=== PATIENT | male | born 1970 | race Caucasian/White ===

== ENCOUNTER 2019-12-05 09:47 | Inpatient (IN) ==
[2019-12-05] MEDS ORDERED: LACTATED RINGERS 1,000 ML IV ONE (09:57)
[2019-12-05] MEDS ORDERED: HYDROmorphone 2 MG/1 ML VIAL IV STA ×2 (10:12→10:43)
[2019-12-05] MEDS ORDERED: ONDANSETRON 4 MG/2 ML VIAL IV PRN ×2 (10:12→14:46)
[2019-12-05 10:20] LABS: Basophils # 0.1 10*3/uL (0.0-0.2); Basophils % 0.5 % (0.0-0.8); Eosinophils % 0.1 % (0.00-10.9); Hemoglobin 15.1 GM/DL (14.0-18.0); Immature Granulocytes % 0.5 %; Immature Granulocytes Absolute 0.07 #; Lymphocytes # 1.8 10*3/uL (1.4-4.0); Mean Corpuscular HGB Conc 32.8 GM/DL (32-36); Mean Corpuscular Volume 89.8 FL (87-102); Mean Platelet Volume 12.4 FL (9.6-12.0); Monocytes % 6.2 % (1.7-12.7); Neutrophils % 80.7 % (38.7-73.9); Platelet Count 219 T/CUMM (130-400); Red Blood Count 5.12 MC/CUMM (3.8-5.5); White Blood Count 15.1 T/CUMM (4-12)
[2019-12-05 10:41] LABS: Albumin 3.3 G/DL (3.4-5.0); Bilirubin,Total 2.1 MG/DL (0.2-1.0); Calcium 9.4 MG/DL (8.5-10.1); Osmolality,Calculated 271.2 MOS/KG (273-304); Total Protein 8.1 G/DL (6.4-8.3)
[2019-12-05] MEDS ORDERED: PIPERACILLIN/TAZOBACTAM 3,375 MG in SODIUM CHLORIDE 0.9% 100 ML IV STA ×2 (10:42→10:48)
[2019-12-05] MEDS ORDERED: PIPERACILLIN/TAZOBACTAM 3,375 MG VIAL IV ONE (10:43)
[2019-12-05] MEDS ORDERED: SODIUM CHLORIDE 0.9% 100 ML IV ONE ×2 (10:46→14:12)
[2019-12-05] MEDS ORDERED: diphenhydrAMINE 50 MG/1 ML VIAL ONE (10:59)
[2019-12-05] MEDS ORDERED: diphenhydrAMINE 50 MG/1 ML VIAL IV STA (10:59)
[2019-12-05] MEDS ORDERED: LACTATED RINGERS 1,000 ML IV SCH (12:00)
[2019-12-05] MEDS ORDERED: ALBUMIN 5% 12.5 GM/250 ML VIAL IV ONE ×2 (12:16→14:12)
[2019-12-05] MEDS ORDERED: propofoL 200 MG/20 ML VIAL IV ONE (14:10)
[2019-12-05] MEDS ORDERED: PHENYLEPHRINE 1 MG/10 ML SYRINGE IV ONE (14:10)
[2019-12-05] MEDS ORDERED: fentaNYL 100 MCG/2 ML VIAL ONE (14:10)
[2019-12-05] MEDS ORDERED: DEXAMETHASONE 4 MG/1 ML VIAL ONE ×2 (14:10→14:15)
[2019-12-05] MEDS ORDERED: ONDANSETRON 4 MG/2 ML VIAL ONE ×2 (14:10→14:38)
[2019-12-05] MEDS ORDERED: MIDAZOLAM 2 MG/2 ML VIAL ONE (14:10)
[2019-12-05] MEDS ORDERED: LIDOCAINE 2% 5 ML VIAL ONE (14:10)
[2019-12-05] MEDS ORDERED: ROCURONIUM 100 MG/10 ML VIAL IV ONE (14:11)
[2019-12-05] MEDS ORDERED: SUCCINYLCHOLINE 200 MG/10 ML VIAL ONE (14:11)
[2019-12-05] MEDS ORDERED: SEVOFLURANE 1 UNIT/15 MINUTE INH ONE (14:12)
[2019-12-05] MEDS ORDERED: ACETAMINOPHEN 1,000 MG/100 ML VIAL IV ONE (14:12)
[2019-12-05] MEDS ORDERED: LACTATED RINGERS 2,000 ML IV ONE (14:12)
[2019-12-05] MEDS ORDERED: SODIUM CHLORIDE 0.9% 1,000 ML IV ONE (14:12)
[2019-12-05] MEDS ORDERED: NEOSTIGMINE 10 MG/10 ML VIAL ONE (14:12)
[2019-12-05] MEDS ORDERED: GLYCOPYRROLATE 0.4 MG/2 ML VIAL ONE (14:12)
[2019-12-05] MEDS ORDERED: ROPIVACAINE 0.5% 30 ML VIAL ONE (14:15)
[2019-12-05] MEDS ORDERED: HYDROmorphone 2 MG/1 ML VIAL ONE (14:38)
[2019-12-05] MEDS: HYDROmorphone 2 MG/1 ML VIAL IV PRN ×4 (14:40→15:04)
[2019-12-05] MEDS: DEXTROSE 5% LACTATED RINGERS 1,000 ML IV SCH (15:33)
[2019-12-05] MEDS: MORPHINE 4 MG/1 ML VIAL IV PRN ×2 (15:45→21:07)
[2019-12-05 16:07] LABS: Apearance,Urine CLOUDY (Clear); Bilirubin,Urine Negative (Negative); Blood, Urine Negative (Negative); Glucose,Urine (UA) Negative (Negative); Granular Casts,Urine 15 /LPF (0-1); Hyaline Casts,Urine 10 /LPF (0-3); Ketones,Urine 5 mg/dL (Negative); Mucus,Urine Few /LPF (Occasional); Nitrite,Urine Negative (Negative); Protein,Urine 100 MG/DL; RBC,Urine 2 /HPF (0-4); Squamous Epithelial Cell,Urine Occasional /HPF (0-10); Urine Color Amber (Yellow); Urine Specific Gravity 1.029 (1.001-1.035); WBC,Urine 27 /HPF (0-6)
[2019-12-05 16:29] LABS: Hematocrit 43.2 VOL% (42.0-52.0); Hemoglobin 14.2 GM/DL (14.0-18.0)
[2019-12-05] MEDS: cefOXitin 2,000 MG in SYRINGE 1 EACH IV SCH (17:44)
[2019-12-06] MEDS: DEXTROSE 5% LACTATED RINGERS 1,000 ML IV SCH ×2 (00:14→11:05)
[2019-12-06] MEDS: cefOXitin 2,000 MG in SYRINGE 1 EACH IV SCH ×2 (00:15→05:46)
[2019-12-06] MEDS: MORPHINE 4 MG/1 ML VIAL IV PRN ×8 (00:53→20:54)
[2019-12-06 05:39] LABS: Basophils % 0.2 % (0.0-0.8); Hematocrit 40.7 VOL% (42.0-52.0); Hemoglobin 13.1 GM/DL (14.0-18.0); Immature Granulocytes % 0.2 %; Immature Granulocytes Absolute 0.03 #; Lymphocytes # 0.3 10*3/uL (1.4-4.0); Lymphocytes % 2.7 % (21.2-54.2); Mean Corpuscular HGB Conc 32.2 GM/DL (32-36); Mean Corpuscular Volume 91.1 FL (87-102); Mean Platelet Volume 13.2 FL (9.6-12.0); Monocytes % 6.5 % (1.7-12.7); Neutrophils % 90.4 % (38.7-73.9); Platelet Count 179 T/CUMM (130-400); Red Blood Count 4.47 MC/CUMM (3.8-5.5); Red Cell Distribution Width 13.2 % (9.3-17.3); White Blood Count 12.2 T/CUMM (4-12)
[2019-12-06 06:05] LABS: Band Neutrophils 13 % (0-10); Hypochromasia Slight; Lymphocytes 5 % (20-55); Platelet Estimate Adequate; Segmented Neutrophils 75 % (50-85); Total Cells Counted 100
[2019-12-06 06:15] LABS: Albumin 2.4 G/DL (3.4-5.0); Bilirubin,Total 2.1 MG/DL (0.2-1.0); Calcium 8.5 MG/DL (8.5-10.1); Total Protein 6.3 G/DL (6.4-8.3)
[2019-12-06 06:49] LABS: Hematocrit 41.2 VOL% (42.0-52.0); Hemoglobin 13.3 GM/DL (14.0-18.0)
[2019-12-06] MEDS ORDERED: DEXTROSE 10% 250 ML BAG IV PRN (09:00)
[2019-12-06] MEDS: KETOROLAC 15 MG/1 ML VIAL IV SCH ×3 (09:00→20:54)
[2019-12-06] MEDS ORDERED: GLUCAGON 1 MG VIAL IM PRN (09:00)
[2019-12-06] MEDS: LISINOPRIL/HCTZ 20-25 MG TABLET PO SCH (09:25)
[2019-12-06] MEDS: PANTOPRAZOLE 40 MG TABLET PO SCH (09:25)
[2019-12-06] MEDS: ENOXAPARIN 40 MG/0.4 ML SYRINGE SUBCUT SCH (09:26)
[2019-12-06] MEDS: LACTATED RINGERS 1,000 ML IV SCH ×2 (10:02→20:57)
[2019-12-06] MEDS: ERTAPENEM 1,000 MG in SODIUM CHLORIDE 0.9% 100 ML IV SCH (10:56)
[2019-12-06] MEDS: INSULIN LISPRO 100 UNIT/ML SUBCUT SCH ×2 (12:09→17:54)
[2019-12-06] MEDS: ACETAMINOPHEN 325 MG TABLET PO PRN (18:44)
[2019-12-07] MEDS: ACETAMINOPHEN 325 MG TABLET PO PRN (01:42)
[2019-12-07] MEDS: LACTATED RINGERS 1,000 ML IV SCH ×2 (03:56→15:37)
[2019-12-07 05:32] LABS: Basophils % 0.1 % (0.0-0.8); Hematocrit 34.9 VOL% (42.0-52.0); Hemoglobin 11.5 GM/DL (14.0-18.0); Immature Granulocytes % 1.1 %; Immature Granulocytes Absolute 0.18 #; Lymphocytes # 0.5 10*3/uL (1.4-4.0); Lymphocytes % 3.2 % (21.2-54.2); Mean Corpuscular Volume 89.3 FL (87-102); Neutrophils % 88.6 % (38.7-73.9); Platelet Count 190 T/CUMM (130-400); Red Blood Count 3.91 MC/CUMM (3.8-5.5); Red Cell Distribution Width 13.2 % (9.3-17.3); White Blood Count 15.7 T/CUMM (4-12)
[2019-12-07 06:06] LABS: Band Neutrophils 4 % (0-10); Hypochromasia 1+; Lymphocytes 7 % (20-55); Platelet Estimate Adequate; Segmented Neutrophils 88 % (50-85); Total Cells Counted 100
[2019-12-07] MEDS: KETOROLAC 15 MG/1 ML VIAL IV SCH ×4 (06:09→21:12)
[2019-12-07 06:17] LABS: Albumin 2.2 G/DL (3.4-5.0); Bilirubin,Total 0.9 MG/DL (0.2-1.0); Calcium 8.1 MG/DL (8.5-10.1); Osmolality,Calculated 275.2 MOS/KG (273-304); Total Protein 6.5 G/DL (6.4-8.3)
[2019-12-07] MEDS: ENOXAPARIN 40 MG/0.4 ML SYRINGE SUBCUT SCH (08:46)
[2019-12-07] MEDS: LISINOPRIL/HCTZ 20-25 MG TABLET PO SCH (08:46)
[2019-12-07] MEDS: INSULIN LISPRO 100 UNIT/ML SUBCUT SCH ×3 (08:47→17:30)
[2019-12-07] MEDS: PANTOPRAZOLE 40 MG TABLET PO SCH (08:54)
[2019-12-07] MEDS: ERTAPENEM 1,000 MG in SODIUM CHLORIDE 0.9% 100 ML IV SCH (10:34)
[2019-12-07] MEDS: MORPHINE 4 MG/1 ML VIAL IV PRN ×4 (15:08→22:09)
[2019-12-07] MEDS: SODIUM HYPOCHLORITE 0.25% IRRIG 473 ML BOTTLE TOP SCH (15:35)
[2019-12-08] MEDS: MORPHINE 4 MG/1 ML VIAL IV PRN ×8 (00:22→21:34)
[2019-12-08] MEDS: KETOROLAC 15 MG/1 ML VIAL IV SCH ×4 (02:53→20:21)
[2019-12-08] MEDS: LACTATED RINGERS 1,000 ML IV SCH ×2 (06:00→20:40)
[2019-12-08] MEDS: LISINOPRIL/HCTZ 20-25 MG TABLET PO SCH (08:15)
[2019-12-08] MEDS: PANTOPRAZOLE 40 MG TABLET PO SCH (08:15)
[2019-12-08] MEDS: ENOXAPARIN 40 MG/0.4 ML SYRINGE SUBCUT SCH (08:20)
[2019-12-08] MEDS: SODIUM HYPOCHLORITE 0.25% IRRIG 473 ML BOTTLE TOP SCH (08:21)
[2019-12-08] MEDS: INSULIN LISPRO 100 UNIT/ML SUBCUT SCH ×3 (10:52→17:27)
[2019-12-08] MEDS: ERTAPENEM 1,000 MG in SODIUM CHLORIDE 0.9% 100 ML IV SCH (10:57)
[2019-12-09] MEDS: MORPHINE 4 MG/1 ML VIAL IV PRN ×4 (00:19→19:38)
[2019-12-09] MEDS: KETOROLAC 15 MG/1 ML VIAL IV SCH ×4 (02:41→21:26)
[2019-12-09 06:27] LABS: Basophils # 0.1 10*3/uL (0.0-0.2); Basophils % 0.4 % (0.0-0.8); Eosinophils # 0.1 10*3/uL (0.0-0.87); Eosinophils % 0.6 % (0.00-10.9); Hematocrit 38.1 VOL% (42.0-52.0); Immature Granulocytes % 0.8 %; Immature Granulocytes Absolute 0.11 #; Lymphocytes % 7.8 % (21.2-54.2); Mean Corpuscular HGB Conc 34.1 GM/DL (32-36); Mean Corpuscular Volume 87.6 FL (87-102); Mean Platelet Volume 11.9 FL (9.6-12.0); Monocytes % 11.5 % (1.7-12.7); Neutrophils % 78.9 % (38.7-73.9); Platelet Count 262 T/CUMM (130-400); Red Blood Count 4.35 MC/CUMM (3.8-5.5); Red Cell Distribution Width 13.2 % (9.3-17.3)
[2019-12-09] MEDS ORDERED: LIDOCAINE 1%/EPI INJ 20 ML VIAL ONE (07:09)
[2019-12-09] MEDS ORDERED: BUPIVACAINE 0.25% /EPI 10 ML VIAL ONE (07:09)
[2019-12-09] MEDS ORDERED: propofoL 200 MG/20 ML VIAL IV ONE (07:46)
[2019-12-09] MEDS ORDERED: fentaNYL 100 MCG/2 ML VIAL ONE (07:46)
[2019-12-09] MEDS ORDERED: LIDOCAINE 2% 5 ML VIAL ONE (07:46)
[2019-12-09] MEDS ORDERED: MIDAZOLAM 2 MG/2 ML VIAL ONE (07:47)
[2019-12-09] MEDS: LACTATED RINGERS 1,000 ML IV SCH ×2 (08:01→21:29)
[2019-12-09 08:13] LABS: Band Neutrophils 2 % (0-10); Eosinophils 2 % (0-10); Lymphocytes 10 % (20-55); Segmented Neutrophils 75 % (50-85); Total Cells Counted 100
[2019-12-09 08:14] LABS: Hypochromasia 1+; Microcytosis 1+
[2019-12-09 08:15] LABS: Platelet Estimate Normal
[2019-12-09] MEDS: INSULIN LISPRO 100 UNIT/ML SUBCUT SCH ×3 (08:47→18:13)
[2019-12-09] MEDS: SODIUM HYPOCHLORITE 0.25% IRRIG 473 ML BOTTLE TOP SCH (08:48)
[2019-12-09] MEDS: ENOXAPARIN 40 MG/0.4 ML SYRINGE SUBCUT SCH (10:00)
[2019-12-09] MEDS: ERTAPENEM 1,000 MG in SODIUM CHLORIDE 0.9% 100 ML IV SCH (10:00)
[2019-12-09] MEDS: LISINOPRIL/HCTZ 20-25 MG TABLET PO SCH (10:00)
[2019-12-09] MEDS: PANTOPRAZOLE 40 MG TABLET PO SCH (10:00)
[2019-12-10] MEDS: KETOROLAC 15 MG/1 ML VIAL IV SCH ×5 (02:21→15:44)
[2019-12-10] MEDS: MORPHINE 4 MG/1 ML VIAL IV PRN (02:24)
[2019-12-10 04:45] LABS: Basophils # 0.1 10*3/uL (0.0-0.2); Basophils % 0.4 % (0.0-0.8); Eosinophils # 0.2 10*3/uL (0.0-0.87); Hematocrit 35.7 VOL% (42.0-52.0); Hemoglobin 12.2 GM/DL (14.0-18.0); Immature Granulocytes % 0.9 %; Immature Granulocytes Absolute 0.14 #; Lymphocytes # 1.4 10*3/uL (1.4-4.0); Lymphocytes % 8.5 % (21.2-54.2); Mean Corpuscular HGB Conc 34.2 GM/DL (32-36); Mean Corpuscular Volume 87.1 FL (87-102); Mean Platelet Volume 11.7 FL (9.6-12.0); Neutrophils % 79.2 % (38.7-73.9); Platelet Count 284 T/CUMM (130-400); White Blood Count 15.9 T/CUMM (4-12)
[2019-12-10 05:06] LABS: Hypochromasia 1+; Microcytosis Slight; Platelet Estimate Adequate
[2019-12-10 05:11] LABS: Albumin 1.8 G/DL (3.4-5.0); Bilirubin,Total 0.8 MG/DL (0.2-1.0); Calcium 8.7 MG/DL (8.5-10.1); Osmolality,Calculated 275.1 MOS/KG (273-304); Total Protein 6.1 G/DL (6.4-8.3)
[2019-12-10] MEDS ORDERED: LEVOFLOXACIN 750 MG TABLET PO SCH (09:00)
[2019-12-10] MEDS: PANTOPRAZOLE 40 MG TABLET PO SCH (09:27)
[2019-12-10] MEDS: LISINOPRIL/HCTZ 20-25 MG TABLET PO SCH (09:27)
[2019-12-10] MEDS: ENOXAPARIN 40 MG/0.4 ML SYRINGE SUBCUT SCH (09:28)
[2019-12-10] MEDS: INSULIN LISPRO 100 UNIT/ML SUBCUT SCH ×2 (09:29→13:56)
[2019-12-10 12:17] VITALS: BP 154/91
[2019-12-10] MEDS: SODIUM HYPOCHLORITE 0.25% IRRIG 473 ML BOTTLE TOP SCH (13:55)
[2019-12-10] MEDS: LACTATED RINGERS 1,000 ML IV SCH (14:10)
== END 2019-12-10 17:20 | disposition home health service (06) | DRG 854 ==
LOC: N.ED 09:47 → SUPCPDRO 13:44 → N.ICU 14:51 → N.3E 12-06 10:36
PROVIDERS: ADMIT Surgery; ATTEND Surgery

== ENCOUNTER 2020-08-27 05:59 | Inpatient (IN) ==
[2020-08-21 11:17] LABS: Basophils # 0.1 10*3/uL (0.0-0.2); Eosinophils # 0.1 10*3/uL (0.0-0.87); Eosinophils % 0.7 % (0.00-10.9); Hematocrit 44.5 VOL% (42.0-52.0); Hemoglobin 15.7 GM/DL (14.0-18.0); Immature Granulocytes % 0.5 %; Immature Granulocytes Absolute 0.04 #; Lymphocytes # 1.6 10*3/uL (1.4-4.0); Lymphocytes % 18.2 % (21.2-54.2); Mean Corpuscular HGB Conc 35.3 GM/DL (32-36); Mean Corpuscular Volume 82.9 FL (87-102); Mean Platelet Volume 11.7 FL (9.6-12.0); Monocytes % 6.1 % (1.7-12.7); Neutrophils % 73.5 % (38.7-73.9); Platelet Count 244 T/CUMM (130-400); Red Blood Count 5.37 MC/CUMM (3.8-5.5); Red Cell Distribution Width 12.3 % (9.3-17.3); White Blood Count 8.9 T/CUMM (4-12)
[2020-08-21 11:50] LABS: Calcium 9.6 MG/DL (8.5-10.1); Osmolality,Calculated 276.7 MOS/KG (273-304)
[2020-08-27] MEDS ORDERED: ROCURONIUM 50 MG/5 ML VIAL IV ONE (06:48)
[2020-08-27] MEDS ORDERED: fentaNYL 100 MCG/2 ML VIAL ONE ×3 (06:48→10:26)
[2020-08-27] MEDS ORDERED: LIDOCAINE 2% 5 ML VIAL ONE (06:48)
[2020-08-27] MEDS ORDERED: MIDAZOLAM 2 MG/2 ML VIAL ONE ×2 (06:48→06:58)
[2020-08-27] MEDS ORDERED: propofoL 200 MG/20 ML VIAL IV ONE (06:48)
[2020-08-27] MEDS ORDERED: DEXAMETHASONE 4 MG/1 ML VIAL ONE ×2 (06:58→08:00)
[2020-08-27] MEDS ORDERED: ROPIVACAINE 0.5% 30 ML VIAL ONE (06:58)
[2020-08-27] MEDS ORDERED: LIDOCAINE 1% 5 ML VIAL ONE (06:58)
[2020-08-27] MEDS ORDERED: LACTATED RINGERS 1,000 ML IV SCH (07:00)
[2020-08-27] MEDS ORDERED: FAMOTIDINE 20 MG/2 ML VIAL IV ONE (07:03)
[2020-08-27] MEDS ORDERED: ACETAMINOPHEN 1,000 MG/100 ML VIAL IV ONE (07:59)
[2020-08-27] MEDS ORDERED: SUCCINYLCHOLINE 200 MG/10 ML VIAL ONE (07:59)
[2020-08-27] MEDS ORDERED: KETOROLAC 30 MG/1 ML VIAL ONE (08:03)
[2020-08-27] MEDS ORDERED: ePHEDrine 50 MG/ML VIAL ONE (08:17)
[2020-08-27] MEDS ORDERED: GLYCOPYRROLATE 0.4 MG/2 ML VIAL ONE ×2 (08:38→09:55)
[2020-08-27] MEDS ORDERED: PHENYLEPHRINE 1 MG/10 ML SYRINGE IV ONE (08:39)
[2020-08-27] MEDS ORDERED: PHENYLEPHRINE 10 MG/1 ML VIAL IV ONE (09:14)
[2020-08-27] MEDS ORDERED: SODIUM CHLORIDE 0.9% 250 ML IV ONE (09:19)
[2020-08-27] MEDS ORDERED: NEOSTIGMINE 10 MG/10 ML VIAL ONE (09:55)
[2020-08-27] MEDS ORDERED: ONDANSETRON 4 MG/2 ML VIAL ONE (09:57)
[2020-08-27] MEDS ORDERED: SEVOFLURANE 1 UNIT/15 MINUTE INH ONE (10:24)
[2020-08-27] MEDS ORDERED: ONDANSETRON 4 MG/2 ML VIAL IV PRN (11:00)
[2020-08-27] MEDS ORDERED: MEPERIDINE 25 MG/1 ML VIAL IV PRN (11:00)
[2020-08-27] MEDS: HYDROmorphone 2 MG/1 ML VIAL IV PRN ×6 (11:03→22:29)
[2020-08-27 11:17] LABS: Hematocrit 42.5 VOL% (42.0-52.0)
[2020-08-27] MEDS: DEXTROSE 5% NACL 0.9% 1,000 ML IV SCH (14:50)
[2020-08-27] MEDS: cefOXitin 2,000 MG in SYRINGE 1 EACH IV SCH ×2 (17:08→22:28)
[2020-08-27 19:01] LABS: Hematocrit 42.6 VOL% (42.0-52.0); Hemoglobin 14.9 GM/DL (14.0-18.0)
[2020-08-28] MEDS: DEXTROSE 5% NACL 0.9% 1,000 ML IV SCH ×4 (01:09→21:13)
[2020-08-28] MEDS: HYDROmorphone 2 MG/1 ML VIAL IV PRN ×3 (01:10→09:02)
[2020-08-28] MEDS: cefOXitin 2,000 MG in SYRINGE 1 EACH IV SCH (04:46)
[2020-08-28] MEDS: ENOXAPARIN 40 MG/0.4 ML SYRINGE SUBCUT SCH (04:47)
[2020-08-28 06:17] LABS: Basophils % 0.3 % (0.0-0.8); Hematocrit 38.8 VOL% (42.0-52.0); Hemoglobin 13.3 GM/DL (14.0-18.0); Immature Granulocytes % 0.5 %; Immature Granulocytes Absolute 0.07 #; Lymphocytes # 1.4 10*3/uL (1.4-4.0); Lymphocytes % 9.4 % (21.2-54.2); Mean Corpuscular HGB Conc 34.3 GM/DL (32-36); Mean Corpuscular Volume 85.5 FL (87-102); Mean Platelet Volume 11.6 FL (9.6-12.0); Monocytes % 10.9 % (1.7-12.7); Neutrophils % 78.9 % (38.7-73.9); Platelet Count 206 T/CUMM (130-400); Red Blood Count 4.54 MC/CUMM (3.8-5.5); Red Cell Distribution Width 12.8 % (9.3-17.3); White Blood Count 14.9 T/CUMM (4-12)
[2020-08-28 06:40] LABS: Calcium 8.3 MG/DL (8.5-10.1); Osmolality,Calculated 278.5 MOS/KG (273-304)
[2020-08-28] MEDS: PANTOPRAZOLE 40 MG TABLET PO SCH (09:04)
[2020-08-28] MEDS: LISINOPRIL/HCTZ 20-25 MG TABLET PO SCH (09:05)
[2020-08-28] MEDS: KETOROLAC 30 MG/1 ML VIAL IV SCH ×3 (11:29→23:45)
[2020-08-28] MEDS: MORPHINE 4 MG/1 ML VIAL IV PRN ×3 (17:01→23:45)
[2020-08-29] MEDS: DEXTROSE 5% NACL 0.9% 1,000 ML IV SCH ×5 (01:50→20:40)
[2020-08-29] MEDS: MORPHINE 4 MG/1 ML VIAL IV PRN ×4 (03:29→23:59)
[2020-08-29] MEDS: ENOXAPARIN 40 MG/0.4 ML SYRINGE SUBCUT SCH (05:00)
[2020-08-29] MEDS: KETOROLAC 30 MG/1 ML VIAL IV SCH ×4 (06:05→17:00)
[2020-08-29 07:59] LABS: Basophils # 0.1 10*3/uL (0.0-0.2); Basophils % 0.4 % (0.0-0.8); Eosinophils % 0.3 % (0.00-10.9); Hematocrit 34.5 VOL% (42.0-52.0); Immature Granulocytes % 0.4 %; Immature Granulocytes Absolute 0.05 #; Lymphocytes # 1.2 10*3/uL (1.4-4.0); Lymphocytes % 9.9 % (21.2-54.2); Mean Corpuscular HGB Conc 34.8 GM/DL (32-36); Mean Corpuscular Volume 84.6 FL (87-102); Mean Platelet Volume 11.5 FL (9.6-12.0); Monocytes % 9.7 % (1.7-12.7); Neutrophils % 79.3 % (38.7-73.9); Platelet Count 178 T/CUMM (130-400); Red Blood Count 4.08 MC/CUMM (3.8-5.5); Red Cell Distribution Width 12.4 % (9.3-17.3); White Blood Count 11.9 T/CUMM (4-12)
[2020-08-29] MEDS: LISINOPRIL/HCTZ 20-25 MG TABLET PO SCH (08:11)
[2020-08-29] MEDS: PANTOPRAZOLE 40 MG TABLET PO SCH (08:11)
[2020-08-29 08:24] LABS: Osmolality,Calculated 274.8 MOS/KG (273-304)
[2020-08-29] MEDS ORDERED: cefOXitin 2,000 MG in SYRINGE 1 EACH IV ONE (09:20)
[2020-08-29] MEDS ORDERED: fentaNYL 100 MCG/2 ML VIAL ONE (10:26)
[2020-08-29] MEDS ORDERED: MIDAZOLAM 2 MG/2 ML VIAL ONE (10:26)
[2020-08-29] MEDS ORDERED: propofoL 200 MG/20 ML VIAL IV ONE ×2 (10:35→12:19)
[2020-08-29] MEDS ORDERED: ROCURONIUM 50 MG/5 ML VIAL IV ONE (10:35)
[2020-08-29] MEDS ORDERED: LIDOCAINE 2% 5 ML VIAL ONE (10:35)
[2020-08-29] MEDS ORDERED: ONDANSETRON 4 MG/2 ML VIAL ONE ×2 (10:35)
[2020-08-29] MEDS ORDERED: DEXAMETHASONE 4 MG/1 ML VIAL ONE ×2 (11:47)
[2020-08-29] MEDS ORDERED: KETOROLAC 30 MG/1 ML VIAL ONE (11:47)
[2020-08-29] MEDS ORDERED: LACTATED RINGERS 1,000 ML IV ONE (12:12)
[2020-08-29] MEDS ORDERED: GLYCOPYRROLATE 0.4 MG/2 ML VIAL ONE (12:12)
[2020-08-29] MEDS ORDERED: NEOSTIGMINE 10 MG/10 ML VIAL ONE (12:12)
[2020-08-29] MEDS ORDERED: HYDROmorphone 2 MG/1 ML VIAL ONE (12:23)
[2020-08-29] MEDS ORDERED: PHENYLEPHRINE 1 MG/10 ML SYRINGE IV ONE ×2 (12:34)
[2020-08-29 13:06] LABS: Bilirubin,Urine Negative (Negative); Blood, Urine Moderate mg/dL (Negative); Glucose,Urine (UA) Negative (Negative); Ketones,Urine Negative (Negative); Mucus,Urine Occasional /LPF (Occasional); Nitrite,Urine Negative (Negative); Protein,Urine Negative; RBC,Urine 1 /HPF (0-4); Urine Appearance CLEAR (Clear); Urine Color Yellow (Yellow); Urine Specific Gravity 1.012 (1.001-1.035); Urine Urobilinogen < 2.0 EU/DL (0.2-1.0); WBC,Urine 1 /HPF (0-6)
[2020-08-30] MEDS: DEXTROSE 5% NACL 0.9% 1,000 ML IV SCH ×4 (00:04→21:34)
[2020-08-30] MEDS: KETOROLAC 30 MG/1 ML VIAL IV SCH ×4 (01:31→17:34)
[2020-08-30 06:03] LABS: Basophils % 0.1 % (0.0-0.8); Hematocrit 35.2 VOL% (42.0-52.0); Hemoglobin 12.1 GM/DL (14.0-18.0); Immature Granulocytes % 0.4 %; Immature Granulocytes Absolute 0.06 #; Mean Corpuscular HGB Conc 34.4 GM/DL (32-36); Mean Corpuscular Volume 85.4 FL (87-102); Monocytes % 7.6 % (1.7-12.7); Neutrophils % 84.9 % (38.7-73.9); Platelet Count 229 T/CUMM (130-400); Red Blood Count 4.12 MC/CUMM (3.8-5.5); Red Cell Distribution Width 12.5 % (9.3-17.3); White Blood Count 13.5 T/CUMM (4-12)
[2020-08-30] MEDS: LISINOPRIL/HCTZ 20-25 MG TABLET PO SCH (09:01)
[2020-08-30] MEDS: PANTOPRAZOLE 40 MG TABLET PO SCH (09:01)
[2020-08-30] MEDS: MORPHINE 4 MG/1 ML VIAL IV PRN ×3 (12:44→21:35)
[2020-08-30] MEDS: ONDANSETRON 4 MG/2 ML VIAL IV PRN (21:32)
[2020-08-31] MEDS: MORPHINE 4 MG/1 ML VIAL IV PRN ×3 (00:14→22:09)
[2020-08-31] MEDS: KETOROLAC 30 MG/1 ML VIAL IV SCH ×4 (00:15→17:31)
[2020-08-31] MEDS: DEXTROSE 5% NACL 0.9% 1,000 ML IV SCH (03:48)
[2020-08-31] MEDS: LISINOPRIL/HCTZ 20-25 MG TABLET PO SCH (09:30)
[2020-08-31] MEDS: PANTOPRAZOLE 40 MG TABLET PO SCH (09:30)
[2020-08-31] MEDS: ONDANSETRON 4 MG/2 ML VIAL IV PRN ×2 (16:09→22:09)
[2020-09-01] MEDS: KETOROLAC 30 MG/1 ML VIAL IV SCH ×4 (00:46→18:44)
[2020-09-01] MEDS: MORPHINE 4 MG/1 ML VIAL IV PRN ×5 (00:47→20:03)
[2020-09-01] MEDS: LISINOPRIL/HCTZ 20-25 MG TABLET PO SCH (09:01)
[2020-09-01] MEDS: PANTOPRAZOLE 40 MG TABLET PO SCH (09:02)
[2020-09-01] MEDS: LOSARTAN 25 MG TABLET PO SCH (16:18)
[2020-09-01] MEDS: ONDANSETRON 4 MG/2 ML VIAL IV PRN (20:03)
[2020-09-02] MEDS: KETOROLAC 30 MG/1 ML VIAL IV SCH ×4 (00:24→17:55)
[2020-09-02] MEDS: MORPHINE 4 MG/1 ML VIAL IV PRN (00:25)
[2020-09-02 07:50] LABS: Basophils # 0.1 10*3/uL (0.0-0.2); Basophils % 0.4 % (0.0-0.8); Eosinophils # 0.1 10*3/uL (0.0-0.87); Eosinophils % 0.4 % (0.00-10.9); Hematocrit 35.1 VOL% (42.0-52.0); Hemoglobin 12.2 GM/DL (14.0-18.0); Immature Granulocytes % 0.6 %; Lymphocytes % 5.8 % (21.2-54.2); Mean Corpuscular HGB Conc 34.8 GM/DL (32-36); Mean Corpuscular Volume 83.2 FL (87-102); Monocytes % 10.4 % (1.7-12.7); Neutrophils % 82.4 % (38.7-73.9); Platelet Count 294 T/CUMM (130-400); Red Blood Count 4.22 MC/CUMM (3.8-5.5); Red Cell Distribution Width 12.2 % (9.3-17.3); White Blood Count 16.8 T/CUMM (4-12)
[2020-09-02] MEDS: PANTOPRAZOLE 40 MG TABLET PO SCH (08:59)
[2020-09-02] MEDS: PIPERACILLIN/TAZOBACTAM 3,375 MG in SODIUM CHLORIDE 0.9% 100 ML IV SCH ×3 (08:59→15:02)
[2020-09-02] MEDS: LISINOPRIL/HCTZ 20-25 MG TABLET PO SCH (08:59)
[2020-09-02] MEDS: LOSARTAN 25 MG TABLET PO SCH (08:59)
[2020-09-02] MEDS ORDERED: GLUCAGON 1 MG VIAL IM PRN (13:26)
[2020-09-02] MEDS ORDERED: DEXTROSE 50% 25 GM/50 ML VIAL IV PRN ×2 (13:26)
[2020-09-02 14:27] LABS: Blood, Urine Negative (Negative); Glucose,Urine (UA) Negative (Negative); Ketones,Urine Negative (Negative); Mucus,Urine Few /LPF (Occasional); Nitrite,Urine Negative (Negative); Protein,Urine Negative; RBC,Urine 1 /HPF (0-4); Urine Appearance CLEAR (Clear); Urine Color Amber (Yellow); Urine Specific Gravity 1.024 (1.001-1.035); WBC,Urine 1 /HPF (0-6)
[2020-09-02 14:28] LABS: Bilirubin,Urine Small mg/dL (Negative)
[2020-09-02] MEDS: METOPROLOL TARTRATE 25 MG TABLET PO SCH ×2 (14:49→21:06)
[2020-09-02] MEDS: INSULIN LISPRO 100 UNIT/ML SUBCUT SCH ×2 (17:02→21:06)
[2020-09-02] MEDS ORDERED: ACETAMINOPHEN 325 MG TABLET PO PRN (17:54)
[2020-09-03] MEDS: PIPERACILLIN/TAZOBACTAM 3,375 MG in SODIUM CHLORIDE 0.9% 100 ML IV SCH ×3 (00:10→16:17)
[2020-09-03] MEDS: KETOROLAC 30 MG/1 ML VIAL IV SCH ×2 (00:12→05:27)
[2020-09-03 06:20] LABS: Basophils # 0.1 10*3/uL (0.0-0.2); Basophils % 0.7 % (0.0-0.8); Eosinophils # 0.1 10*3/uL (0.0-0.87); Eosinophils % 0.7 % (0.00-10.9); Hematocrit 37.3 VOL% (42.0-52.0); Hemoglobin 13.2 GM/DL (14.0-18.0); Immature Granulocytes % 0.5 %; Immature Granulocytes Absolute 0.06 #; Lymphocytes # 0.9 10*3/uL (1.4-4.0); Lymphocytes % 6.7 % (21.2-54.2); Mean Corpuscular HGB Conc 35.4 GM/DL (32-36); Mean Corpuscular Volume 83.3 FL (87-102); Mean Platelet Volume 11.7 FL (9.6-12.0); Neutrophils % 80.4 % (38.7-73.9); Platelet Count 342 T/CUMM (130-400); Red Blood Count 4.48 MC/CUMM (3.8-5.5); Red Cell Distribution Width 12.3 % (9.3-17.3); White Blood Count 12.8 T/CUMM (4-12)
[2020-09-03 06:41] LABS: Risk Ratio 4.95; VLDL CHOLESTEROL 21.8 MG/DL
[2020-09-03 06:45] LABS: Band Neutrophils 2 % (0-10); Lymphocytes 7 % (20-55); Platelet Estimate Normal; Segmented Neutrophils 83 % (50-85); Total Cells Counted 100
[2020-09-03 06:57] LABS: Albumin 2.6 G/DL (3.4-5.0); Bilirubin,Total 2.8 MG/DL (0.2-1.0); Calcium 8.9 MG/DL (8.5-10.1); Osmolality,Calculated 264.8 MOS/KG (273-304); Total Protein 7.5 G/DL (6.4-8.3)
[2020-09-03] MEDS ORDERED: POTASSIUM CHLORIDE 20 MEQ TABLET PO ONE (07:45)
[2020-09-03] MEDS ORDERED: POTASSIUM CHLORIDE RIDER 10 MEQ in PREMIX 1 EACH IV PRN (08:52)
[2020-09-03] MEDS: LISINOPRIL/HCTZ 20-25 MG TABLET PO SCH (10:15)
[2020-09-03] MEDS: METOPROLOL TARTRATE 25 MG TABLET PO SCH ×2 (10:15→20:36)
[2020-09-03] MEDS: PANTOPRAZOLE 40 MG TABLET PO SCH (10:15)
[2020-09-03] MEDS: INSULIN LISPRO 100 UNIT/ML SUBCUT SCH ×4 (10:16→21:00)
[2020-09-04] MEDS: PIPERACILLIN/TAZOBACTAM 3,375 MG in SODIUM CHLORIDE 0.9% 100 ML IV SCH ×2 (00:13→09:50)
[2020-09-04 06:20] LABS: Basophils # 0.1 10*3/uL (0.0-0.2); Basophils % 0.6 % (0.0-0.8); Eosinophils # 0.1 10*3/uL (0.0-0.87); Eosinophils % 1.3 % (0.00-10.9); Hematocrit 37.9 VOL% (42.0-52.0); Hemoglobin 13.3 GM/DL (14.0-18.0); Immature Granulocytes % 0.5 %; Immature Granulocytes Absolute 0.05 #; Lymphocytes # 1.1 10*3/uL (1.4-4.0); Lymphocytes % 10.4 % (21.2-54.2); Mean Corpuscular HGB Conc 35.1 GM/DL (32-36); Mean Corpuscular Volume 83.3 FL (87-102); Monocytes % 14.3 % (1.7-12.7); Neutrophils % 72.9 % (38.7-73.9); Platelet Count 374 T/CUMM (130-400); Red Blood Count 4.55 MC/CUMM (3.8-5.5); Red Cell Distribution Width 12.3 % (9.3-17.3); White Blood Count 10.9 T/CUMM (4-12)
[2020-09-04 06:35] LABS: Calcium 8.6 MG/DL (8.5-10.1); Osmolality,Calculated 268.4 MOS/KG (273-304)
[2020-09-04 07:48] LABS: Albumin 2.3 G/DL (3.4-5.0); Bilirubin,Direct 0.45 MG/DL (0.0-0.20); Bilirubin,Indirect 0.7 MG/DL (0.0-1.0); Bilirubin,Total 1.1 MG/DL (0.2-1.0); Total Protein 6.6 G/DL (6.4-8.3)
[2020-09-04] MEDS: INSULIN LISPRO 100 UNIT/ML SUBCUT SCH ×2 (07:51→11:07)
[2020-09-04] MEDS ORDERED: POTASSIUM CHLORIDE 20 MEQ TABLET PO ONE (08:00)
[2020-09-04] MEDS: METOPROLOL TARTRATE 25 MG TABLET PO SCH (09:50)
[2020-09-04] MEDS: LISINOPRIL/HCTZ 20-25 MG TABLET PO SCH (09:50)
[2020-09-04] MEDS: PANTOPRAZOLE 40 MG TABLET PO SCH (09:50)
[2020-09-04 11:24] VITALS: BP 126/63
== END 2020-09-04 11:24 | disposition home or self-care (01) | DRG 330 ==
LOC: N.OR 05:59 → N.SDSINP 06:02 → N.4E 11:36 → N.3E 08-29 17:44
PROVIDERS: ADMIT Surgery; ATTEND Surgery